=== PATIENT | male | born 1985 | race Caucasian/White ===

== ENCOUNTER 2023-10-15 10:31 | Outpatient (CLI) | payer OTHER, SELFPAY | END 2023-10-15 10:32 | disposition home or self-care (01) | PROVIDERS: PCP Family Medicine; Visit Provider Family Medicine | DX: Z13.220 Encounter for screening for lipoid disorders (principal); Z13.228 Encounter for screening for other metabolic disorders | CPT/HCPCS: 80048; 80061; 80076 ==

== ENCOUNTER 2025-04-10 10:49 | Outpatient (CLI) | payer OTHER, SELFPAY | END 2025-04-10 10:50 | disposition home or self-care (01) | PROVIDERS: PCP Family Medicine; Visit Provider Family Medicine | DX: Z01.818 Encounter for other preprocedural examination (principal) | CPT/HCPCS: 80048; 85025 ==

== ENCOUNTER 2025-04-20 13:59 | Inpatient (IN) | payer OTHER, SELFPAY ==
[2025-04-20] VITALS (32 sets, daily range): BP systolic 72–152; BP diastolic 42–105; PULSE 78–94; RESP 12–18; TEMP 35.9–37.3; O2SAT 88–100; BMI 33.7
[2025-04-20] MEDS: LACTATED RINGERS 1000 ML 1,000 ML 100 ML IV ×3 (06:59→12:55)
[2025-04-20] MEDS: SODIUM CHLORIDE 0.9 % (FLUSH) 10 ML SYRINGE IVF (06:59)
[2025-04-20] MEDS: ACETAMINOPHEN 500 MG TABLET 1000 MG PO ×3 (07:08→21:32)
[2025-04-20] MEDS: OXYCODONE (CR) 10 MG TAB.ER.12H PO (07:08)
--- NOTE | 2025-04-20 07:11 | W.PM.H&PU ---
History & Physical Update History & Physical Update H&P Reviewed and patient assessed: No changes noted
--- NOTE | 2025-04-20 07:20 | SUR.PREOP ---
TIME?OUT:?0720 PT/RN/MDA?VERIFICATION?OF?SURGICAL?SITE,?PROCEDURE,?AND?CONSENT OBTAINED?PRIOR?TO?INVASIVE?PROCEDURE.
[2025-04-20] MEDS: MIDAZOLAM HCL 1 MG/ML inj IVP (07:21)
--- NOTE | 2025-04-20 07:45 | CRLHL7_ITS ---
For Patients: As a result of the Cures Act, medical imaging exams and procedure reports are released immediately into your electronic medical record. You may view this report before your referring provider. If you have questions, please contact your health care provider. INDICATION: Bilateral hip arthroplasty. TECHNIQUE: Two spot fluoroscopic views of the left hip COMPARISON: None. FINDINGS: Hip arthroplasty hardware appears appropriately positioned. Please see operative report/procedure note for complete details. Fluoroscopy time: 38 seconds. Radiation dose: 9.2 mGy. IMPRESSION: Fluoroscopic guidance for hip arthroplasty. Dictated by Isidro Gonzalez MD @ 04/21/2025 12:58:53 PM (Electronically Signed)
--- NOTE | 2025-04-20 07:45 | CRLHL7_ITS ---
For Patients: As a result of the Cures Act, medical imaging exams and procedure reports are released immediately into your electronic medical record. You may view this report before your referring provider. If you have questions, please contact your health care provider. Indication: Hip replacement surgery Technique: AP hip fluoroscopic images. Fluoroscopy time 37.3 seconds. Findings/Impression: Hardware from a right hip arthroplasty is in satisfactory position. Dictated by Quinn Coto MD @ 04/20/2025 1:45:03 PM (Electronically Signed)
[2025-04-20] MEDS: TRANEXAMIC ACID 100 MG/ML INJ 1000 MG IV (08:09)
--- NOTE | 2025-04-20 12:02 | CRLHL7_ITS ---
For Patients: As a result of the Cures Act, medical imaging exams and procedure reports are released immediately into your electronic medical record. You may view this report before your referring provider. If you have questions, please contact your health care provider. INDICATION: Bilateral total hip arthroplasty. TECHNIQUE: Single portable cross-table view of the right hip. COMPARISON: 04/20/2025. IMPRESSION: Right hip arthroplasty appears appropriately positioned. No acute or other osseous abnormality evident. Dictated by Isidro Gonzalez MD @ 04/21/2025 1:00:02 PM (Electronically Signed)
--- NOTE | 2025-04-20 12:02 | CRLHL7_ITS ---
For Patients: As a result of the Cures Act, medical imaging exams and procedure reports are released immediately into your electronic medical record. You may view this report before your referring provider. If you have questions, please contact your health care provider. INDICATION: Bilateral total hip arthroplasty. TECHNIQUE: Pelvis one view. Left hip one view. COMPARISON: 04/05/2025. FINDINGS: Right and left hip arthroplasties appear appropriately positioned. Soft tissue gas consistent with recent surgery. No acute or other osseous abnormality. IMPRESSION: Expected changes status post bilateral hip arthroplasty. Dictated by Isidro Gonzalez MD @ 04/21/2025 1:00:53 PM (Electronically Signed)
--- NOTE | 2025-04-20 12:03 | P.ORPRC_ITS ---
Procedure Note Date of procedure: 04/20/25 Procedure: PREOPERATIVE DIAGNOSIS: 1. Bilateral hip osteoarthritis, severe, primary POSTOPERATIVE DIAGNOSIS: 1. Bilateral hip osteoarthritis, severe, primary PROCEDURE: 1. Bilateral total hip arthroplasty-anterior approach 2. Intraoperative fluoroscopy interpreted by Jens Maynard M.D. for intraoperative evaluation of implant positioning, leg length and offset evaluation, and Fluoroscopy time was 38.3 seconds on the right and 37.3 seconds on the left. SURGEON: Jens Maynard MD. POT FIRER: John Montalvo PA-C; KESHIA Baumann - Of note, a skilled journeyman operator assistant was critical for this case to aid in patient positioning, tissue retraction, limb manipulation/positioning, and closure. 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 Given the deformity, the dysfunction, and the pain, as well as the failure of nonoperative management, recommendation was made for surgery. FINDINGS: Indeed blistered/buckled articular cartilage in the superior surface of bilateral femoral heads consistent with avascular necrosis and subchondral collapse. Extremely large effusion upon entering the joint. DESCRIPTION OF PROCEDURE: Following a thorough discussion of risks, benefits, and alternatives consent was obtained and the right hip was marked. The patient was brought to the operating room and placed supine on the operating table. Induction of anesthesia was undertaken. 2 g IV Ancef and 1 g tranexamic acid was administered within 1 hr of incision preoperatively. (Of note, 1 g IV Ancef was administered near the completion of the procedure during closure of the 2nd wound as this had been 4 hours of wound being open). Proper time-out was performed identifying proper patient, site, procedure. The operative extremity was prepped and draped in the appropriate sterile fashion using ChloraPrep after the patient was positioned on the [place] table with head in neutral alignment and all bony prominences well padded. C-arm fluoroscopic imaging was utilized to confirm proper pelvis rotation and position, and to get true AP films of both the contralateral left, and the affected right hip. This is for comparison. We began on the right hip: A longitudinal incision was made starting approximately 1 cm distal to the ASIS, and 2-3 cm lateral. The incision was extended distally aiming toward the fibular head. Sharp incision through skin and bovie cautery through the subcutaneous tissue allowed identification of the TFL fascia. This was sharply divided, and the fascia bluntly released from the muscle fibers as we dissected medial. Upon coming to the medial border, we were able to retract the TFL laterally, and penetrated the deeper fascia and identify the crossing circumflex vessels. These were ligated/cauterized. The rectus was elevated from the capsule, and retractors placed laterally and medially along the femoral neck to help with visualization of the capsule. We then performed an inverted T capsulotomy. The capsule was tagged for later repair. Retractors were placed inside the capsule. The femoral neck was visualized after releasing medially down to the lesser trochanter, along the saddle laterally, and up onto the acetabulum. The femoral neck cut was made in line with our preoperative templating. The head was removed in a single piece, and sized. We turned our attention to acetabular preparation. Initially, the labrum was resected from around the perimeter, the pulvinar was excised, allowing us to visualize the false wall. We started the reaming with a 51 mm reamer. This was medialized down to the true wall. We then enlarged our reamers sequentially up to one size less than the selected cup size. We trialed at the same size and found it to have an excellent fit. The selected cup was then opened, inserted, and impacted in line with the goal of 40? of abduction, and 20-25? of anteversion. This was confirmed on C-arm fluoroscopic imaging to be in the appropriate/goal position. Once the cup was placed we placed a dual mobility liner was placed consistent with preop planning. Attention was turned to the femoral preparation. The limb was extended, externally rotated, and adducted. The posteromedial capsule was released, as retractors were placed allowing excellent access to the proximal femur. Initially a boxing trainer was followed by canal finder followed by various b roaches. We broached sequentially up to the size noted above, found it to have excellent rotational control, and trialing various heads and necks, revealed that appropriate neck offset, and the above noted head sizes provided the greatest stability, and cheondoism of length, and offset. C-arm fluoroscopic imaging confirmed position of the stem, as well as leg lengths, which were compared with the pre procedure all fluoroscopic images. Trial implants were removed, the real femoral stem inserted, as were the appropriate dual mobility heads. After reducing, the leg was placed through range of motion and stability was confirmed anterior, posterior, and lateral. A 3 min Betadine soak was then performed, and thorough irrigation with normal saline followed. Closure of the capsule was performed with #1 PDS. Bleeding was confirmed to be controlled at this stage, and the TFL fascia was closed with #0 strata fix. Subcutaneous, and subcuticular closure was performed with 2-0 Stratafix and 4-0 Stratafix, respectively. Dressings were applied, and attention was turned to the contralateral left hip. For the left hip: The same steps/processes were undertaken including the incision positioning, dissection, and tissue mobilization. We began again with the acetabular preparation a including the emphasys cup and dual mobility liner placement. Thereafter, attention was turned to the femoral preparation was performed likewise with the contralateral side, see above. Trial implants removed the real femoral stem inserted in dual mobility heads were applied and reduced. Excellent limb length and offsets comparisons were completed/achieved. Closure was performed after a 3 min betadine soak, again, followed by thorough irrigation. Capsular closure, subcutaneous, and subcuticular layers were closed respectively. Dressings were applied, and attention was turned to the contralateral left hip. He was awoken from anesthesia and transferred the PACU in stable condition. A skilled journeyman operator assistant was critical for this case to aid in patient positioning, tissue retraction, acetabular and proximal femoral exposure, limb manipulation/positioning, dislocation/relocation, patient safety, and closure. * again, bilateral hip replacements were completely separate procedures today. We completed the 1st hip replacement and performed a new setup for completion of the 2nd hip replacement. The reason that bilateral hip replacements were done was because of his bilateral avascular necrosis and femoral head collapse seen radiographically, along with his significant symptoms. The large effusions in each joint confirmed this abnormal pathology. PLAN: 1. Weight bear as tolerated operative extremity. 2. 23 hr perioperative antibiotics. 3. Ice. 4. PT/OT consults for ambulation assistance/mobility education. 5. Social work consult for discharge planning. 6. DVT prophylaxis with at SCDs and Xarelto x5 days followed by aspirin for a total of 1 month.
--- NOTE | 2025-04-20 12:21 | P.ANES_ITS ---
Anesthesia Charges Start Date/Time Anesthesia Start Date: 04/20/25 Anesthesia Start Time: 07:40 Stop Date/Time Anesthesia Stop Date: 04/20/25 Anesthesia Stop Time: 12:20 Coding CPT Codes CPT Codes: ANESTH HIP ARTHROPLASTY - 83644 ([id number]) P2 - PATIENT W/MILD SYST DISEASE, QK - CYTOPATHOLOGY TECHNOLOGIST 2-4 CNCRNT ANES PROC, QX - DIRECTOR BUSINESS INTEGRATION SVC W/ MD MED DIRECTION
--- NOTE | 2025-04-20 12:21 | W.ANESCHARGE ---
Anesthesia Charges Start Date/Time Anesthesia Start Date: 04/20/25 Anesthesia Start Time: 07:40 Stop Date/Time Anesthesia Stop Date: 04/20/25 Anesthesia Stop Time: 12:20 Coding CPT Codes CPT Codes: ANESTH HIP ARTHROPLASTY - 63858 ([id number]) P2 - PATIENT W/MILD SYST DISEASE, QK - FIRST MATE 2-4 CNCRNT ANES PROC, QX - MATERIAL REPROCESSING ASSOCIATE SVC W/ MD MED DIRECTION
--- NOTE | 2025-04-20 12:25 | P.ANES_ITS ---
Anesthesia Charges Start Date/Time Anesthesia Start Date: 04/20/25 Anesthesia Start Time: 07:40 Stop Date/Time Anesthesia Stop Date: 04/20/25 Anesthesia Stop Time: 12:20 Coding CPT Codes CPT Codes: ANESTH HIP ARTHROPLASTY - 18334 ([id number]) P2 - PATIENT W/MILD SYST DISEASE, QK - FLY FINISHER 2-4 CNCRNT ANES PROC, QX - ULTRASOUND MANAGER SVC W/ MD MED DIRECTION
--- NOTE | 2025-04-20 12:25 | W.ANESCHARGE ---
Anesthesia Charges Start Date/Time Anesthesia Start Date: 04/20/25 Anesthesia Start Time: 07:40 Stop Date/Time Anesthesia Stop Date: 04/20/25 Anesthesia Stop Time: 12:20 Coding CPT Codes CPT Codes: ANESTH HIP ARTHROPLASTY - 83747 ([id number]) P2 - PATIENT W/MILD SYST DISEASE, QK - PACKER AND CARRY OUT 2-4 CNCRNT ANES PROC, QX - ALUMINUM CAN COLLECTOR SVC W/ MD MED DIRECTION
--- NOTE | 2025-04-20 12:26 | W.PM.NB ---
Nerve Block Nerve Block Time Seen by Provider: 07:25 Date Seen: 04/20/25 Type of block requested by surgeon for post-operative analgesia: LINO/LFCN Side: left Time out performed: Yes Verification of patient name: Yes Verification of date of : Yes Site marking: site marked Name of person performing procedure: Ruy Continuous monitoring Was continuous monitoring of O2 sat, B/P, air sampling and monitoring, recorded every 15 minutes?: Yes Procedure Checklist: sterile prep, needles and gloves Ultrasound guided. Images saved: Yes Medications given in 5ml increments after negative aspiration: Marcaine %: 0.25 mL: 15 and Exparel mL: 10 Precedex (mcg): 25 Patient tolerated procedure well: Yes Additional comments: Needle noted below psoas tendon needle noted adjacent to LFCN Block Charges Block Charge (with Pro Fee): Other Periph Nerve Block Use of Ultrasound Machine for Block: Yes- US Guidance/pain block
--- NOTE | 2025-04-20 12:27 | W.PM.NB ---
Nerve Block Nerve Block Time Seen by Provider: 07:30 Date Seen: 04/20/25 Type of block requested by surgeon for post-operative analgesia: LINO/LFCN Side: right Time out performed: Yes Verification of patient name: Yes Verification of date of : Yes Site marking: site marked Name of person performing procedure: Ruy Continuous monitoring Was continuous monitoring of O2 sat, B/P, concrete paving supervisor, recorded every 15 minutes?: Yes Procedure Checklist: sterile prep, needles and gloves Ultrasound guided. Images saved: Yes Medications given in 5ml increments after negative aspiration: Marcaine %: 0.25 mL: 15 and Exparel mL: 10 Precedex (mcg): 25 Patient tolerated procedure well: Yes Additional comments: Needle noted below psoas tendon needle noted adjacent to LFCN Block Charges Block Charge (with Pro Fee): Other Periph Nerve Block Use of Ultrasound Machine for Block: Yes- US Guidance/pain block
[2025-04-20] MEDS: CYCLOBENZAPRINE HCL 10 MG TABLET PO (13:46)
[2025-04-20] MEDS: LACTATED RINGERS 1000 ML 1,000 ML 75 ML IV (13:46)
[2025-04-20] MEDS: CEFAZOLIN 2 GM in 0.9 % SODIUM CHLORIDE Mini-bag 100 ML IVPB ×2 (13:47→21:35)
--- NOTE | 2025-04-20 15:27 | P.IMCN_ITS ---
Date of Consult Patient: [facility] Patient Consult date: 04/20/25 Requesting Physician: Orthopedics Primary Care Provider: Quinn Villafana MD Consult Narrative Narrative: Roberto Medina is a 40 year old male admitted to the hospital for bilateral hip arthroplasty. Procedures performed by Dr. Maynard. No apparent complications. Estimated blood loss 600 mL. He is seen in consultation for management of medical problems and postoperative complications. At the time I see him he is reporting significant thigh and calf pain bilaterally. He tells me this is a chronic intermittent problem for the last 10 months which he attributes to his bilateral avascular necrosis of the femoral head. He has no other immediate concerns. No nausea. No lightheadedness, dyspnea or chest pain. He reports no recent illness. He had no health concerns heading into surgery today. Preoperative history and physical did not identify significant concerns to be addressed in the perioperative time. He has had dental surgery with dental extractions. No other history of surgery or anesthesia problems. He has had no personal or family history of bleeding or blood clots except possibly his father had a blood clot of unknown circumstances. Both parents had heart disease. 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 He reports he had a lumbar spine injection with corticosteroid about 10 months ago. He had an injection at L5-S1 which was quite effective at treating sciatica pain. Since that time however he has had his bilateral thigh and calf pain. Review of Systems Narrative: No other recent illness or injury. [facility] Medical History (Updated 04/20/25 @ 16:01 by Anthony Christina MD) Obstructive sleep apnea ?G47.33 - Obstructive sleep apnea (adult) (pediatric) (ICD-10) Elevated blood pressure reading without diagnosis of hypertension ?R03.0 - Elevated blood-pressure reading, without diagnosis of hypertension (ICD-10) Obesity (BMI 30.0-34.9) ?E66.811 - Obesity, class 1 (ICD-10) ADHD, predominantly inattentive type ?F90.0 - Attention-deficit hyperactivity disorder, predominantly inattentive type (ICD-10) Surgical History (Updated 04/20/25 @ 15:36 by Anthony Christina MD) History of bilateral total hip arthroplasty ?Z96.643 - Presence of artificial hip joint, bilateral (ICD-10) Family History Father High blood pressure Social History (Updated 04/20/25 @ 16:04 by Anthony Christina MD) Narrative: , three kids, safety supervisor, one pack per day smoker, drinks 2 drinks per day, 3-4 days per week. No history of withdrawal on days that he does not drink. Sister Esvin is 1st contact for healthcare decision making What is your current living situation?: I presently have a place to live Problems where you live: no known problems In the past 12 months, utilities in danger of being shut off: no In past 12 months, lack of transportation kept you from medical appts, meetings, work, or getting things needed for daily living: no In the past 12 mos, have been you worried that your food would run out before you had money to buy more?: never true In the past 12 mos, the food you bought just didn't last and you didn't have money to buy more?: never true Smoking Status: Current every day smoker Do you use any of these nicotine containing products: None How often do you have a drink containing alcohol: 4 or more times a week Alcohol type: hard liquor How many standard drinks containing alcohol do you have on a typical day: 1 or 2 AUDIT-C Alcohol total score: 4 Non-prescribed substance use: denies use Caffeine: No How often does anyone, including family, friends and others, physically hurt you : never How often does anyone, including family, friends and others, insult or talk down to you: never How often does anyone, including family, friends and others, threaten you with harm: never How often does anyone, including family, friends and others, scream or curse at you: never Meds Home Medications and Allergies Home Medications ?Medication ?Instructions ?Recorded ?Confirmed ?Type dextroamphetamine-amphetamine ER 30 mg PO QAM #30 caps 01/08/25 04/20/25 Rx 30 mg 24hr capsule,extend release (Adderall XR) Allergies Allergy/AdvReac Type Severity Reaction Status Date / Time No Known Drug Allergies Allergy Verified 04/13/25 10:26 Exam Narrative: Exam Narrative: He is alert and appears in no distress. He gives his own history. Eyes normal. Oropharynx with small airway. Neck is supple without mass or adenopathy. Respirations are clear to auscultation. Breathing is unlabored. Cardiovascular: S1, S2, regular rate and rhythm. No murmur gallop or rub. Abdomen: Bowel sounds active. Abdomen is soft without tenderness or mass. Extremities bilaterally with intact pulses. No edema. No rash. Const: Vital Signs, click to edit/add: Vital Signs - 24 hr 04/20/25 07:00 04/20/25 07:09 04/20/25 07:17 Temperature 98.0 F Pulse Rate 84 85 85 Respiratory Rate 16 16 16 Blood Pressure 152/104 H 142/102 H 146/102 H Pulse Oximetry 96 97 97 Oxygen Delivery Me thod Room Air Room Air Nasal Cannula Oxygen Flow Rate 3 04/20/25 07:20 04/20/25 07:25 04/20/25 07:30 Temperature Pulse Rate 87 78 82 Respiratory Rate 14 14 14 Blood Pressure 149/105 H 142/101 H 146/98 H Pulse Oximetry 97 100 100 Oxygen Delivery Me thod Nasal Cannula Nasal Cannula Nasal Cannula Oxygen Flow Rate 3 3 3 04/20/25 07:35 04/20/25 12:16 04/20/25 12:20 Temperature 99.2 F Pulse Rate 86 80 79 Respiratory Rate 14 12 12 Blood Pressure 144/99 H 104/73 99/72 Pulse Oximetry 100 93 92 Oxygen Delivery Me thod Nasal Cannula Room Air Room Air Oxygen Flow Rate 3 04/20/25 12:25 04/20/25 12:30 04/20/25 12:35 Temperature Pulse Rate 80 81 81 Respiratory Rate 12 12 12 Blood Pressure 92/67 80/56 L 99/56 L Pulse Oximetry 92 92 91 Oxygen Delivery Me thod Room Air Room Air Room Air Oxygen Flow Rate 04/20/25 12:40 04/20/25 12:45 04/20/25 12:50 Temperature Pulse Rate 82 81 79 Respiratory Rate 14 14 16 Blood Pressure 111/76 109/62 109/72 Pulse Oximetry 91 91 92 Oxygen Delivery Me thod Room Air Room Air Room Air Oxygen Flow Rate 04/20/25 12:55 04/20/25 13:00 04/20/25 13:05 Temperature 97.8 F Pulse Rate 78 86 85 Respiratory Rate 16 16 16 Blood Pressure 103/73 72/42 L 79/61 L Pulse Oximetry 92 88 93 Oxygen Delivery Me thod Room Air Room Air Nasal Cannula Oxygen Flow Rate 2 04/20/25 13:10 04/20/25 13:15 04/20/25 13:20 Temperature 96.6 F L Pulse Rate 85 82 87 Respiratory Rate 16 16 14 Blood Pressure 120/81 144/103 H Pulse Oximetry 93 95 91 Oxygen Delivery Me thod Room Air Room Air Nasal Cannula Oxygen Flow Rate 2 2 2 04/20/25 13:35 04/20/25 13:50 04/20/25 14:05 Temperature 96.6 F L 96.9 F L 97.0 F L Pulse Rate 83 85 88 Respiratory Rate 16 16 18 Blood Pressure 146/103 H 131/94 H 124/87 Pulse Oximetry 98 97 98 Oxygen Delivery Me thod Nasal Cannula Room Air Room Air Oxygen Flow Rate 2 04/20/25 14:35 04/20/25 14:50 04/20/25 15:00 Temperature 96.9 F L 97.3 F L Pulse Rate 94 Respiratory Rate 18 16 16 Blood Pressure 149/98 H 131/83 Pulse Oximetry 98 98 98 Oxygen Delivery Me thod Room Air Room Air Room Air Oxygen Flow Rate Documenting provider has reviewed patient's vital signs: yes Assessment and Plan Assessment and plan (1) History of bilateral total hip arthroplasty: Problem comment: Dr. Maynard, 04/20/2025, Status: Acute (2) Elevated blood pressure reading without diagnosis of hypertension: Problem comment: History of elevated blood pressure readings without diagnosis of hypertension Status: Acute (3) Obesity (BMI 30.0-34.9): Status: Acute (4) Avascular necrosis of bones of both hips: Problem comment: Status post bilateral hip replacement on April 20 Status: Acute (5) ADHD, predominantly inattentive type: Status: Acute (6) Obstructive sleep apnea: Problem comment: Patient has a small airway and is at risk for sleep apnea. He reports no chronic symptoms of snoring or poor sleep. Status: Suspected Plan Patient is admitted to the hospital for management of postoperative care for bilateral hip arthroplasty. Currently working on management of pain, monitoring for hypotension from blood loss or hypoxia from pain medication and suspected sleep apnea. Total Time Spent Total Time Spent: Total time spent is 55 minutes in reviewing outside records, coordination of care and discussing with patient and family
--- NOTE | 2025-04-20 18:03 | PC.NURSE ---
Shift Summary 15-19: Patient pleasant and cooperative. Up with one assist, walker and gait belt. Vitals stable and WNL. Pain managed with PRN medication and ice, see MAR. Rates pain 3/10 and states that is tolerable, seen sleeping in recliner. Tolerating regular diet, denies nausea.
[2025-04-20] MEDS: SENNOSIDES 1 TAB TABLET 2 TAB PO (21:33)
[2025-04-21] MEDS: CYCLOBENZAPRINE HCL 10 MG TABLET PO (01:52)
[2025-04-21] MEDS: ACETAMINOPHEN 500 MG TABLET 1000 MG PO ×2 (02:29→08:03)
[2025-04-21 02:43] VITALS: BP 123/92; PULSE 98; RESP 20; TEMP 37.4; O2SAT 100
--- NOTE | 2025-04-21 06:34 | PC.NURSE ---
Shift note ([id number]): Patient pleasant, alert and oriented. Ambulated to bathroom with walker, gait belt and assist of one. Dressings to bilateral hips?clean, dry and intact. Ice packs applied. CMS intact. Given scheduled Tylenol, PRN Dilaudid, PRN oxycodone, PRN Hydroxyzine?pain rated 6-9/10.?
[2025-04-21 07:00] VITALS: BP 136/83; PULSE 100; RESP 20; TEMP 36.8; O2SAT 100; O2SAT 97
[2025-04-21 07:39] LABS: Hematocrit* 36.4 % (37.0-53.0); Hemoglobin* 12.3 gm/dL (13.5-17.5); Immature Granulocytes Pct Auto 0.3 %; Mean Corpuscular HGB Conc 34 gm/dL (32-36); Mean Corpuscular Hemoglobin 33 pg (26-34); Mean Corpuscular Volume 98 fL (80-100); RDW Coefficient of Variation % 11.7 % (11.5-15.5); Red Blood Count* 3.73 m/uL (4.30-5.90); White Blood Count* 12.23 K/uL (4.50-11.00)
[2025-04-21 07:47] LABS: Immature Granulocytes Abs Auto 0.00 K/uL (0.00-0.30); Lymphocytes Absolute Auto 2.60 K/uL (0.90-2.90); Slide Review Reflex No
[2025-04-21] MEDS: RIVAROXABAN 10 MG TABLET PO (08:03)
[2025-04-21] MEDS: SENNOSIDES 1 TAB TABLET 2 TAB PO (08:03)
[2025-04-21] MEDS: OMEPRAZOLE 20 MG CAPSULE DR PO (08:35)
[2025-04-21] MEDS: CELECOXIB 200 MG CAPSULE PO (08:35)
[2025-04-21 11:00] VITALS: BP 133/83; PULSE 82; RESP 18; TEMP 36.8; O2SAT 94
--- NOTE | 2025-04-21 11:53 | PM.IMPN1 ---
Assessment and Plan Assessment and plan (1) History of bilateral total hip arthroplasty: Problem comment: Dr. Maynard, 04/20/2025, Status: Acute (2) Elevated blood pressure reading without diagnosis of hypertension: Problem comment: History of elevated blood pressure readings without diagnosis of hypertension Status: Acute (3) Obesity (BMI 30.0-34.9): Status: Acute (4) Avascular necrosis of bones of both hips: Problem comment: Status post bilateral hip replacement on April 20 Status: Acute (5) ADHD, predominantly inattentive type: Status: Acute (6) Obstructive sleep apnea: Problem comment: Patient has a small airway and is at risk for sleep apnea. He reports no chronic symptoms of snoring or poor sleep. No nocturnal hypoxia noted during this hospital stay Status: Suspected (7) Pain management: Problem comment: I believe the patient's pain is primarily related to his bilateral hip arthroplasty, postop pain. I do not see evidence of a primary muscle pain problem. Discussed with patient and other providers options for pain management going forward to include oxycodone and possibly Celebrex. If on Celebrex consider omeprazole for GI bleeding prophylaxis Status: Acute Plan Discharge to home per Orthopedic surgery Total Time Spent Total Time Spent: Total time spent today is 35 minutes in discussing pain management with patient and other providers Subjective Date Seen: 04/21/25 Interval history: Roberto Medina is a 40 year old male admitted to the hospital for bilateral hip arthroplasty. Procedures performed by Dr. Maynard. No apparent complications. Estimated blood loss 600 mL. He is seen in consultation for management of medical problems and postoperative complications. At the time I see him he is reporting significant thigh and calf pain bilaterally. He tells me this is a chronic intermittent problem for the last 10 months which he attributes to his bilateral avascular necrosis of the femoral head. He has no other immediate concerns. No nausea. No lightheadedness, dyspnea or chest pain. He reports no recent illness. He had no health concerns heading into surgery today. Preoperative history and physical did not identify significant concerns to be addressed in the perioperative time. He has had dental surgery with dental extractions. No other history of surgery or anesthesia problems. He has had no personal or family history of bleeding or blood clots except possibly his father had a blood clot of unknown circumstances. Both parents had heart disease. 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 He reports he had a lumbar spine injection with corticosteroid about 10 months ago. He had an injection at L5-S1 which was quite effective at treating sciatica pain. Since that time however he has had his bilateral thigh and calf pain. 04/21/2025: Overnight he reports ongoing fairly severe bilateral thigh pain. He describes his has muscle pain. Pain is exacerbated by any attempt to move his hips. He received 1 dose of Celebrex this morning which gave some good relief. So far muscle relaxants have not been helpful. Also on oxycodone 10 mg with incomplete relief of pain. He did well with physical therapy this morning despite his pain. He has no other concerns. I was concerned about possibility of undiagnosed sleep apnea causing hypoxia overnight. He had no hypoxia. Exam Narrative: Exam Narrative: He is alert no distress. Breathing is normal. Examination of his legs shows no obvious redness swelling or bruising. Palpation over his thighs where he reports muscle spasms are soft and nontender. No edema. Const: Vital Signs, click to edit/add: Vital Signs - 24 hr 04/20/25 12:16 04/20/25 12:20 04/20/25 12:25 Temperature 99.2 F Pulse Rate 80 79 80 Respiratory Rate 12 12 12 Blood Pressure 104/73 99/72 92/67 Pulse Oximetry 93 92 92 Oxygen Delivery Me thod Room Air Room Air Room Air Oxygen Flow Rate 04/20/25 12:30 04/20/25 12:35 04/20/25 12:40 Temperature Pulse Rate 81 81 82 Respiratory Rate 12 12 14 Blood Pressure 80/56 L 99/56 L 111/76 Pulse Oximetry 92 91 91 Oxygen Delivery Me thod Room Air Room Air Room Air Oxygen Flow Rate 04/20/25 12:45 04/20/25 12:50 04/20/25 12:55 Temperature Pulse Rate 81 79 78 Respiratory Rate 14 16 16 Blood Pressure 109/62 109/72 103/73 Pulse Oximetry 91 92 92 Oxygen Delivery Me thod Room Air Room Air Room Air Oxygen Flow Rate 04/20/25 13:00 04/20/25 13:05 04/20/25 13:10 Temperature 97.8 F Pulse Rate 86 85 85 Respiratory Rate 16 16 16 Blood Pressure 72/42 L 79/61 L 120/81 Pulse Oximetry 88 93 93 Oxygen Delivery Me thod Room Air Nasal Cannula Room Air Oxygen Flow Rate 2 2 04/20/25 13:15 04/20/25 13:20 04/20/25 13:35 Temperature 96.6 F L 96.6 F L Pulse Rate 82 87 83 Respiratory Rate 16 14 16 Blood Pressure 144/103 H 146/103 H Pulse Oximetry 95 91 98 Oxygen Delivery Me thod Room Air Nasal Cannula Nasal Cannula Oxygen Flow Rate 2 2 2 04/20/25 13:50 04/20/25 14:05 04/20/25 14:35 Temperature 96.9 F L 97.0 F L 96.9 F L Pulse Rate 85 88 94 Respiratory Rate 16 18 18 Blood Pressure 131/94 H 124/87 149/98 H Pulse Oximetry 97 98 98 Oxygen Delivery Me thod Room Air Room Air Room Air Oxygen Flow Rate 04/20/25 14:50 04/20/25 15:00 04/20/25 16:11 Temperature 97.3 F L 97.8 F Pulse Rate 84 Respiratory Rate 16 16 16 Blood Pressure 131/83 139/100 H Pulse Oximetry 98 98 96 Oxygen Delivery Me thod Room Air Room Air Room Air Oxygen Flow Rate 04/20/25 17:11 04/20/25 18:11 04/20/25 20:11 Temperature 98 F 98.1 F 98.4 F Pulse Rate 90 86 81 Respiratory Rate 12 16 18 Blood Pressure 128/83 139/92 H 143/96 H Pulse Oximetry 96 96 95 Oxygen Delivery Me thod Room Air Room Air Oxygen Flow Rate 04/20/25 22:38 04/20/25 22:38 04/21/25 02:43 Temperature 98.4 F 99.3 F Pulse Rate 82 98 Respiratory Rate 18 18 20 Blood Pressure 144/91 H 123/92 H Pulse Oximetry 97 97 100 Oxygen Delivery Me thod Room Air Room Air Room Air Oxygen Flow Rate 04/21/25 07:00 04/21/25 07:00 04/21/25 07:00 Temperature 98.3 F Pulse Rate 100 Respiratory Rate 20 20 20 Blood Pressure 136/83 Pulse Oximetry 100 97 Oxygen Delivery Me thod Room Air Room Air Oxygen Flow Rate Labs Labs: Laboratory Results - last 24 hr 04/21/25 07:30 WBC 12.23 H RBC 3.73 L Hgb 12.3 L Hct 36.4 L MCV 98 MCH 33 MCHC 34 RDW Coeff of Lili 11.7 Plt Count 213 Neut % (Auto) 68.3 Lymph % (Auto) 21.1 [place] % (Auto) 10.1 Eos % (Auto) 0.1 Baso % (Auto) 0.1 Neut # (Auto) 8.40 H Lymph # (Auto) 2.60 [place] # (Auto) 1.20 H Eos # (Auto) 0.00 Baso # (Auto) 0.00 Abs Immat Gran (auto) 0.00 Imm/Tot Granulo (auto) 0.3
--- NOTE | 2025-04-21 12:30 | PM.ORPN ---
Subjective Subjective Date Seen: 04/21/25 Principal diagnosis: Status postop day 1, bilateral total hip arthroplasty - anterior approach Interval history: Patient reports doing better this later morning. He had a difficult night of pain, as he fell behind with pain management. 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 Since the medication has been better scheduled, in addition to Celebrex addition by hospitalist, patient's pain is much better. Pain now managed with scheduled and PRN medications, ice. DVT prophylaxis: Rivaroxaban, SCDs, walking. Denies fevers, chills, aches, N/V, CP, SOB/TSANG, or lightheadedness. Ortho Exam Narrative Exam Narrative: -Patient appears comfortable in decline; no apparent acute distress -Alert and oriented times 3 -Bilateral hips mild-moderately swollen; soft tissues supple; no obvious erythema. No obvious ecchymosis. Warmth appropriate. Bilateral quads soft, supple - no obvious spasms, or muscle tension. -Surgical dressings clean, dry, intact; no obvious drainage, no erythematous streaking peripheral to the bandage. The left dressing is rolling down from proximal end. -Bilateral calves soft and supple; no significant swelling, edema, tenderness, erythema, discoloration, warmth, or palpable cords -2+ DP/PT pulses, intact dermatomes and myotomes distally (5/5 strength). No numbness about the lateral femoral cutaneous nerve distribution. Const Vital Signs, click to edit/add: Vital Signs - 24 hr 04/20/25 12:35 04/20/25 12:40 04/20/25 12:45 Temperature Pulse Rate 81 82 81 Respiratory Rate 12 14 14 Blood Pressure 99/56 L 111/76 109/62 Pulse Oximetry 91 91 91 Oxygen Delivery Method Room Air Room Air Room Air Oxygen Flow Rate 04/20/25 12:50 04/20/25 12:55 04/20/25 13:00 Temperature 97.8 F Pulse Rate 79 78 86 Respiratory Rate 16 16 16 Blood Pressure 109/72 103/73 72/42 L Pulse Oximetry 92 92 88 Oxygen Delivery Method Room Air Room Air Room Air Oxygen Flow Rate 04/20/25 13:05 04/20/25 13:10 04/20/25 13:15 Temperature Pulse Rate 85 85 82 Respiratory Rate 16 16 16 Blood Pressure 79/61 L 120/81 Pulse Oximetry 93 93 95 Oxygen Delivery Method Nasal Cannula Room Air Room Air Oxygen Flow Rate 2 2 2 04/20/25 13:20 04/20/25 13:35 04/20/25 13:50 Temperature 96.6 F L 96.6 F L 96.9 F L Pulse Rate 87 83 85 Respiratory Rate 14 16 16 Blood Pressure 144/103 H 146/103 H 131/94 H Pulse Oximetry 91 98 97 Oxygen Delivery Method Nasal Cannula Nasal Cannula Room Air Oxygen Flow Rate 2 2 04/20/25 14:05 04/20/25 14:35 04/20/25 14:50 Temperature 97.0 F L 96.9 F L 97.3 F L Pulse Rate 88 94 Respiratory Rate 18 18 16 Blood Pressure 124/87 149/98 H 131/83 Pulse Oximetry 98 98 98 Oxygen Delivery Method Room Air Room Air Room Air Oxygen Flow Rate 04/20/25 15:00 04/20/25 16:11 04/20/25 17:11 Temperature 97.8 F 98 F Pulse Rate 84 90 Respiratory Rate 16 16 12 Blood Pressure 139/100 H 128/83 Pulse Oximetry 98 96 96 Oxygen Delivery Method Room Air Room Air Oxygen Flow Rate 04/20/25 18:11 04/20/25 20:11 04/20/25 22:38 Temperature 98.1 F 98.4 F Pulse Rate 86 81 Respiratory Rate 16 18 18 Blood Pressure 139/92 H 143/96 H Pulse Oximetry 96 95 97 Oxygen Delivery Method Room Air Room Air Room Air Oxygen Flow Rate 04/20/25 22:38 04/21/25 02:43 04/21/25 07:00 Temperature 98.4 F 99.3 F Pulse Rate 82 98 Respiratory Rate 18 20 20 Blood Pressure 144/91 H 123/92 H Pulse Oximetry 97 100 Oxygen Delivery Method Room Air Room Air Oxygen Flow Rate 04/21/25 07:00 04/21/25 07:00 Temperature 98.3 F Pulse Rate 100 Respiratory Rate 20 20 Blood Pressure 136/83 Pulse Oximetry 100 97 Oxygen Delivery Method Room Air Room Air Oxygen Flow Rate Assessment and Plan Assessment and plan (1) History of bilateral total hip arthroplasty: Problem details: Dr. Maynard, 04/20/2025, Status: Acute (2) Elevated blood pressure reading without diagnosis of hypertension: Problem details: History of elevated blood pressure readings without diagnosis of hypertension Status: Acute (3) Obesity (BMI 30.0-34.9): Status: Acute (4) Avascular necrosis of bones of both hips: Problem details: Status post bilateral hip replacement on April 20 Status: Acute (5) ADHD, predominantly inattentive type: Status: Acute (6) Obstructive sleep apnea: Problem details: Patient has a small airway and is at risk for sleep apnea. He reports no chronic symptoms of snoring or poor sleep. No nocturnal hypoxia noted during this hospital stay Status: Suspected (7) Pain management: Problem details: I believe the patient's pain is primarily related to his bilateral hip arthroplasty, postop pain. I do not see evidence of a primary muscle pain problem. Discussed with patient and other providers options for pain management going forward to include oxycodone and possibly Celebrex. If on Celebrex consider omeprazole for GI bleeding prophylaxis Status: Acute Plan - Complete 23 hour perioperative antibiotics. - PT/OT consult for education and assistance. - Social work consult for discharge planning - unlikely to occur as they are not present on the weekend, but patient should not have any needs for social work to address. - Prescribed analgesics as needed: oxycodone, acetaminophen, Celebrex, Vistaril; no further benzodiazepines or muscle relaxants. Will Rx celebrex, which should help with pain/inflammation postoperative, and also shows to be effective in preventing development of heterotopic ossification in cementless total hip arthroplasties compared to control group. We understand the risk of bleed with Celebrex and rivaroxaban concomitantly, which is much lower compared to non mariscal-2 selective NSAIDs. This treatment will only be for 10 days at low dose 100mg BID. - DVT prophylaxis: Rivaroxaban - will take for 10 days; ACCP recommends at least 10-14 days of rivaroxaban following DAPHNE, if not 35 days. After conversation with hospitalist, patient will take 10 total days of rivaroxaban (largely due to bilateral hip procedures, followed by 25 days 81 mg aspirin by mouth twice daily, in addition to walking. Continue SCDs while in hospital. - Anticipation is for discharge to home with family today 04/21/2025 if the patient remains medically stable, pain is controlled, and they are safe with mobilization. Patient purchased walker from hospital today. Total Time Spent Total time spent: 55 minutes
--- NOTE | 2025-04-21 14:39 | PC.NURSE ---
End of shift report [id number]: Alert and oriented x 4. Pain to bilateral hips managed with current regimen. Dressings clean, dry and intact. SBA with ambulation and transfers with GB and walker. Discharge instructions reviewed. Assisted patient to personal vehicle via wheelchair.
--- NOTE | 2025-04-23 11:04 | PM.ANPOST ---
Post Anesthesia Note Post Anesthesia Note Patient seen: Inpatient Respiratory Status: adequate Cardiovascular Status: adequate Mental Status: baseline Pain: adequate Temp: baseline Anesthetic awareness: no Complications: none Follow care: none
== END 2025-04-21 14:36 | disposition home or self-care (01) | DRG 462 ==
LOC: OR 14:00 → MEDSURG 16:04
PROVIDERS: Family Medicine; Admitting Provider Orthopaedic Surgery Sports Medicine; PCP Family Medicine; Visit Provider Orthopaedic Surgery Sports Medicine
PROC: 0SR90JZ Replacement of Right Hip Joint with Synthetic Substitute, Open Approach (ICD-10-PCS; CPT 27130; principal; 2025-04-20 07:45)
DX: M16.0 Bilateral primary osteoarthritis of hip (principal); M87.852 Other osteonecrosis, left femur; M87.851 Other osteonecrosis, right femur; G89.18 Other acute postprocedural pain; G47.33 Obstructive sleep apnea (adult) (pediatric); E66.811 Obesity, class 1; Z68.33 Body mass index [BMI] 33.0-33.9, adult; R03.0 Elevated blood-pressure reading, without diagnosis of hypertension; F17.210 Nicotine dependence, cigarettes, uncomplicated; F90.0 Attention-deficit hyperactivity disorder, predominantly inattentive type
CPT/HCPCS: 01214; 36415; 64450; 73501; 76000; 76942; 85025; 86850; 86900; 86901; 97110; 97116; 97161; 97165; 97530; 97535; A9270; C1776; J0665; J0666; J0690; J1100; J1171; J2250; J2405; J2704; J3010; J3475; J3490; J7120